=== PATIENT | male | born 2005 | race Caucasian/White ===

== ENCOUNTER 2023-05-05 17:40 | Emergency (ER) | payer OTHER, SELFPAY ==
[2023-05-05 17:42] VITALS: BP 140/80; PULSE 67; RESP 14; TEMP 36.6; O2SAT 97; BMI 29.1
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
--- NOTE | 2023-05-05 18:05 | RAD_ITS ---
INDICATION: pain EXAMINATION/TECHNIQUE: X-RAY - LEFT XR Shoulder Min 2 Views 4 VIEWS COMPARISON: No relevant prior comparison study available FINDINGS: SOFT TISSUES: No soft tissue swelling or gas. No radiopaque foreign body. BONES/JOINTS: No acute fracture or subluxation.. Normal alignment. Preservation of the joint space.. No sclerotic or destructive changes observed. RAD/Shoulder min 2 Views IMPRESSION: Negative. Electronically Signed: Aris Bunch MD at 19:17 EDT ,
== END 2023-05-05 19:39 | disposition home or self-care (01) ==
PROVIDERS: Emergency Provider Student in an Organized Health Care Education/Training Program; PCP Family Medicine; Visit Provider Student in an Organized Health Care Education/Training Program
DX: S46.912A Strain of unspecified muscle, fascia and tendon at shoulder and upper arm level, left arm, initial encounter (principal); W19.XXXA Unspecified fall, initial encounter
CPT/HCPCS: 73030; 99282